=== PATIENT | female | born 1960 | race Hispanic/Latino ===

== ENCOUNTER 2017-10-29 12:19 | Emergency (ER) | payer SELFPAY ==
[2017-10-29] MEDS ORDERED: IBUPROFEN 600 MG TABLET ONE (12:51)
== END 2017-10-29 14:24 | disposition home or self-care (01) ==
LOC: EDH 12:19
DX: S83.8X1A Sprain of other specified parts of right knee, initial encounter (principal); E11.9 Type 2 diabetes mellitus without complications; I10 Essential (primary) hypertension; E78.5 Hyperlipidemia, unspecified; Z79.4 Long term (current) use of insulin; X50.1XXA Overexertion from prolonged static or awkward postures, initial encounter; Y93.01 Activity, walking, marching and hiking; Y92.89 Other specified places as the place of occurrence of the external cause; Y99.8 Other external cause status
CPT/HCPCS: 73562

== ENCOUNTER 2018-07-23 17:21 | Inpatient (IN) | payer OTHER ==
[2018-07-23] VITALS (10 sets, daily range): BP systolic 93–115; BP diastolic 54–84
[2018-07-23] MEDS ORDERED: ASPIRIN 81MG TAB.CHEW ONE (17:42)
[2018-07-23] MEDS ORDERED: HEPARIN SODIUM 5000UNIT/ML 1ML VIAL ONE (17:43)
[2018-07-23 17:53] LABS: BASOPHILS % (AUTO) 0.6 % (0.0-5.0); EOSINOPHILS % (AUTO) 0.4 % (0.0-8.0); HEMATOCRIT 40.9 % (36-48); LYMPHOCYTES % (AUTO) 11.2 % (21.0-51.0); MEAN CORPUSCULAR HEMOGLOBIN 30.8 pg (27.0-33.0); MEAN CORPUSCULAR HGB CONC 33.6 g/dL (32.0-36.0); MEAN CORPUSCULAR VOLUME 91.4 fL (79-99); MONOCYTES % (AUTO) 5.1 % (3.0-13.0); NEUTROPHILS % (AUTO) 82.7 % (40.0-77.0); PLATELET COUNT (AUTO) 226 K/uL (130-400); RED BLOOD CELL COUNT(AUTO) 4.48 MIL/uL (4.00-5.50); RED CELL DISTRIBUTION WIDTH 13.4 % (11.0-15.5); WHITE BLOOD COUNT (AUTO) 15.8 K/uL (4.8-10.8)
[2018-07-23 18:04] LABS: CREATININE 1.5 mg/dL (0.5-1.5); POTASSIUM 4.3 mmol/L (3.5-5.1)
[2018-07-23] MEDS ORDERED: ATROPINE SULFATE 0.1 MG/ML 10 ML SYG IVP ONE (18:06)
[2018-07-23] MEDS ORDERED: BIVALIRUDIN 250 MG/VIAL IV ONE (18:06)
[2018-07-23] MEDS ORDERED: NITROGLYCERIN 5 MG/ML 10 ML VIAL IV ONE (18:07)
[2018-07-23] MEDS ORDERED: DOPAMINE HCL 400 MG/D5%-WATER 250 ML IV ONE (18:07)
[2018-07-23] MEDS ORDERED: IOHEXOL 350 MG/ML 100ML INFUS..BTL IV ONE (18:07)
[2018-07-23] MEDS ORDERED: IOHEXOL-350 50ML VIAL IV ONE (18:07)
[2018-07-23] MEDS ORDERED: LIDOCAINE HCL 2% 20ML ONE (18:07)
[2018-07-23 18:11] LABS: BILIRUBIN,TOTAL 0.4 mg/dL (0.2-1.0); TOTAL PROTEIN, SERUM 7.8 g/dL (6.0-8.3)
[2018-07-23 18:26] LABS: B-TYPE NATRIURETIC PEPTIDE 27 pg/mL (0-100)
[2018-07-23] MEDS ORDERED: AMIODARONE HCL 50 MG/ML 3 ML VIAL ONE ×2 (18:26→18:27)
[2018-07-23] MEDS ORDERED: PRASUGREL HCL 10 MG TABLET ONE (19:11)
[2018-07-23] MEDS ORDERED: DOPAMINE HCL 400 MG in SODIUM CHLORIDE 0.9% 240 ML IV SCH (19:30)
[2018-07-23] MEDS ORDERED: TEMAZEPAM 30 MG CAP PO PRN (19:30)
[2018-07-23] MEDS ORDERED: ACETAMINOPHEN-CODEINE 300/30MG TAB PO PRN ×2 (19:30)
[2018-07-23] MEDS ORDERED: ONDANSETRON HCL 4 MG/2 ML VIAL IVP SCH (19:30)
[2018-07-23] MEDS ORDERED: ONDANSETRON HCL 4 MG/2 ML VIAL IVP PRN (19:30)
[2018-07-23] MEDS ORDERED: MORPHINE SULFATE 5 MG/ML VIAL IVP SCH ×2 (19:30)
[2018-07-23] MEDS: INSULIN HUMULIN R 100 UNIT/ML 3ML SQ SCH (21:00)
[2018-07-23 22:28] LABS: INR 1.15 (0.85-1.15); PARTIAL THROMBOPLASTIN TIME 50.4 SEC (26.3-35.5)
[2018-07-23] MEDS ORDERED: MORPHINE SULFATE 2 MG/ML 1ML SYG IVP PRN (22:30)
[2018-07-23] MEDS ORDERED: DOPAMINE HCL 400 MG/D5%-WATER 250 ML IV PRN (23:45)
[2018-07-24] VITALS (20 sets, daily range): BP systolic 111–161; BP diastolic 58–99
[2018-07-24] MEDS: ATORVASTATIN CALCIUM 20 MG TABLET PO SCH ×2 (01:19→21:56)
[2018-07-24 02:52] LABS: MEAN CORPUSCULAR HEMOGLOBIN 31.1 pg (27.0-33.0); MEAN CORPUSCULAR HGB CONC 33.9 g/dL (32.0-36.0); MEAN CORPUSCULAR VOLUME 91.7 fL (79-99); PLATELET COUNT (AUTO) 195 K/uL (130-400); RED BLOOD CELL COUNT(AUTO) 4.15 MIL/uL (4.00-5.50); RED CELL DISTRIBUTION WIDTH 13.4 % (11.0-15.5); WHITE BLOOD COUNT (AUTO) 15.1 K/uL (4.8-10.8)
[2018-07-24 03:18] LABS: CREATININE 1.2 mg/dL (0.5-1.5); POTASSIUM 4.1 mmol/L (3.5-5.1)
[2018-07-24] MEDS: INSULIN HUMULIN R 100 UNIT/ML 3ML SQ SCH ×4 (07:30→21:00)
[2018-07-24] MEDS: ASPIRIN 81MG TAB.CHEW PO SCH (08:24)
[2018-07-24] MEDS: PANTOPRAZOLE SODIUM 40 MG TABLET.DR PO SCH (08:24)
[2018-07-24] MEDS ORDERED: OMEG-148 PO (09:26)
[2018-07-24] MEDS ORDERED: IBUP-2353 PO (09:26)
[2018-07-24] MEDS ORDERED: LISI40TA4 PO (09:26)
[2018-07-24] MEDS ORDERED: METF-445 PO (09:26)
[2018-07-24] MEDS ORDERED: ERGO500014 PO (09:26)
[2018-07-24] MEDS ORDERED: AEC81 PO (09:26)
[2018-07-24] MEDS: PRASUGREL HCL 10 MG TABLET PO SCH (10:56)
--- NOTE | 2018-07-24 12:55 | NUR ---
DC Plan Discussed dcp w/ patient. Lives w/ room mate. Roommate and dtr to assist on dc. Independently performs ADLs. Works as a provider. Denies any HH or provider services. Established with the [facility]. States feel safe returning home once stable. DCP to home. Patient denied any needs. CD Addendum: 07/24/18 at 1259 by MATHEUS JOHNS CM Amended: Links added.
[2018-07-24] MEDS: METOPROLOL TARTRATE 25 MG TAB PO SCH (21:56)
[2018-07-25 03:54] LABS: BASOPHILS % (AUTO) 0.5 % (0.0-5.0); EOSINOPHILS % (AUTO) 0.8 % (0.0-8.0); HEMATOCRIT 36.9 % (36-48); LYMPHOCYTES % (AUTO) 28.7 % (21.0-51.0); MEAN CORPUSCULAR HEMOGLOBIN 31.6 pg (27.0-33.0); MEAN CORPUSCULAR HGB CONC 34.1 g/dL (32.0-36.0); MEAN CORPUSCULAR VOLUME 92.6 fL (79-99); MONOCYTES % (AUTO) 6.9 % (3.0-13.0); NEUTROPHILS % (AUTO) 63.1 % (40.0-77.0); PLATELET COUNT (AUTO) 174 K/uL (130-400); RED BLOOD CELL COUNT(AUTO) 3.98 MIL/uL (4.00-5.50); RED CELL DISTRIBUTION WIDTH 13.5 % (11.0-15.5); WHITE BLOOD COUNT (AUTO) 10.1 K/uL (4.8-10.8)
[2018-07-25 04:00] VITALS: BP 137/103
[2018-07-25 04:11] LABS: CREATININE 0.9 mg/dL (0.5-1.5); POTASSIUM 3.8 mmol/L (3.5-5.1)
[2018-07-25] MEDS: INSULIN HUMULIN R 100 UNIT/ML 3ML SQ SCH ×4 (06:56→21:00)
[2018-07-25 07:11] VITALS: BP 148/95
--- NOTE | 2018-07-25 08:00 | NUR ---
PT RECEIVED IN BED, AAOX4, NO ACUTE DISTRESS NOTED. POST HEART CATH DAY #2. TELE WITH SR 80s. NO C/O CHEST PAIN VOICED. RIGHT GROIN WITH D-STAT NOTED, NO HEMATOMA, NO BLEEDING TO SITE. PULSES STRONG DISTALLY. POC DISCUSSED WITH PATIENT. PENDING 2D ECHO FOR FURTHER PLANNING. INSTRUCTED TO CALL FOR ASSISTANCE IF NEEDED, VOICED UNDERSTANDING. CALL DUMONT IS WITHIN REACH, WILL CONT OT MONITOR. Addendum: 07/25/18 at 1043 by ROSA MARIA SCHMITT RN RN Amended: Links added.
[2018-07-25] MEDS: PANTOPRAZOLE SODIUM 40 MG TABLET.DR PO SCH (08:25)
[2018-07-25] MEDS: METOPROLOL TARTRATE 25 MG TAB PO SCH ×2 (08:26→20:19)
[2018-07-25] MEDS: ASPIRIN 81MG TAB.CHEW PO SCH (08:26)
[2018-07-25] MEDS: LISINOPRIL 40 MG TABLET PO SCH (08:26)
[2018-07-25] MEDS: PRASUGREL HCL 10 MG TABLET PO SCH (08:26)
--- NOTE | 2018-07-25 10:44 | NUR ---
2D ECHO COMPLETE. MD ROUNDS DR. ARANGO IN TO SEE PATIENT. NO NEW ORDERS RECEIVED.
[2018-07-25 11:00] VITALS: BP 157/90
--- NOTE | 2018-07-25 14:30 | NUR ---
MD ROUNDS DR. SCTOT IN TO SEE PATIENT. MD UPDATED ON POC, PENDING 2-D ECHO TO BE READ.
[2018-07-25 16:00] VITALS: BP 154/93
[2018-07-25 19:00] VITALS: BP 167/102
[2018-07-25] MEDS ORDERED: HYDRALAZINE HCL 20 MG/ML VIAL IV PRN (20:15)
[2018-07-25] MEDS: ATORVASTATIN CALCIUM 20 MG TABLET PO SCH (20:19)
[2018-07-25 23:00] VITALS: BP 158/99
[2018-07-26 03:00] VITALS: BP 165/102
[2018-07-26 03:41] LABS: HEMATOCRIT 38.6 % (36-48); MEAN CORPUSCULAR HGB CONC 33.9 g/dL (32.0-36.0); MEAN CORPUSCULAR VOLUME 91.3 fL (79-99); NUCLEATED RED BLOOD CELLS 0.1 % (0.0-0.19); PLATELET COUNT (AUTO) 162 K/uL (130-400); RED BLOOD CELL COUNT(AUTO) 4.22 MIL/uL (4.00-5.50); RED CELL DISTRIBUTION WIDTH 13.4 % (11.0-15.5); WHITE BLOOD COUNT (AUTO) 10.6 K/uL (4.8-10.8)
--- NOTE | 2018-07-26 03:47 | NUR ---
BP PRN HYDRALAZINE GIVEN AT THIS TIME BP 165/102 SEE JUL. WILL CONTINUE TO MONITOR.
[2018-07-26 04:00] LABS: PHOSPHORUS 3.3 mg/dL (2.5-4.9); POTASSIUM 3.8 mmol/L (3.5-5.1)
[2018-07-26 04:09] LABS: HEMOGLOBIN A1C 5.7 % (4.0-6.0)
[2018-07-26 04:54] VITALS: BP 150/77
[2018-07-26] MEDS: INSULIN HUMULIN R 100 UNIT/ML 3ML SQ SCH ×2 (06:09→11:30)
[2018-07-26 07:30] VITALS: BP 141/92
--- NOTE | 2018-07-26 07:45 | NUR ---
PT RECEIVED IN BED, AAOX4, NO ACUTE DISTRESS NOTED. TELE WITH SR 68, NO CHEST PAIN OR SOB VOICED. DR. ARANGO IN TO SEE PATIENT. DISCUSSED FINDINGS OF HEART CATH WITH HER AND HER SISTERS RESENT. PLAN FOR DISCHARGE THIS EVENING, PENDING EVALUATION OF BLOOD PRESSURE WITH NEW MEDICATIONS TO BE ADDED THIS AM. MD INSTRUCTED PT TO BE OUT OF BED, AMBULATE AND REPORT ANY SOB OR CHEST PAIN TO NURSE. PATIENT VOICED UNDERSTANDING. WILL CONT TO MONITOR.
[2018-07-26] MEDS: PANTOPRAZOLE SODIUM 40 MG TABLET.DR PO SCH (08:56)
[2018-07-26] MEDS: METOPROLOL TARTRATE 25 MG TAB PO SCH (08:56)
[2018-07-26] MEDS: ASPIRIN 81MG TAB.CHEW PO SCH (08:56)
[2018-07-26] MEDS: LISINOPRIL 40 MG TABLET PO SCH (08:56)
[2018-07-26] MEDS: PRASUGREL HCL 10 MG TABLET PO SCH (08:56)
[2018-07-26] MEDS ORDERED: AMLODIPINE BESYLATE 5 MG TAB PO SCH (09:00)
[2018-07-26] MEDS ORDERED: HYDROCHLOROTHIAZIDE 25 MG TABLET PO SCH (09:00)
--- NOTE | 2018-07-26 10:57 | NUR ---
PT WITH C/O HEADACHE. BP 136/[address] SCOTT NEED ORDER FOR PRN PAIN MED.
[2018-07-26] MEDS ORDERED: ACETAMINOPHEN 325 MG TAB ONE (11:11)
[2018-07-26] MEDS ORDERED: ACETAMINOPHEN 325 MG TAB PO PRN (11:15)
[2018-07-26 11:21] VITALS: BP 145/76
--- NOTE | 2018-07-26 14:20 | NUR ---
MD ROUNDS DR. SCOTT IN TO SEE PATIENT. MD UPDATED ON STATUS AND NEW ORDERS FROM DR. ARANGO. PT CLEARED FOR DISCHARGE PER CARDIOLOGY. DR. SCOTT REVIEWED MEDICATIONS AND ADJUSTED ACCORDINGLY.
[2018-07-26 15:40] VITALS: BP 141/91
--- NOTE | 2018-07-26 16:54 | NUR ---
PATIENT HAS BEEN DISCHARGED HOME, ALL INSTRUCTIONS GIVEN UTILIZING TEACH BACK. INSTRUCTIONS FOLLOWS: FOLLOW UP WITH DR. ARANGO 08/18/2018 @ 3:30 PM FOLLOW UP WITH PRIMARY CARE PROVIDER, CALL MD OFFICE AND SCHEDULE AN APPOINTMENT FOR 1 WEEK, POST HOSPITALIZATION. NEW MEDICATIONS: LISINOPRIL 10 MG BY MOUTH DAILY, METOPROLOL TARTRATE 25 MG BY MOUTH TWICE A DAY PLAVIX 75MG BY MOUTH DAILY AMLODIPINE 5 MG BY MOUTH DAILY ASA 81 MG BY MOUTH DAILY ATORVASTATIN 40 MG BY MOUTH AT NIGHT. DISCUSSED WITH PATIENT S/S TO REPORT TO MD AND WHEN TO SEEK IMMEDIATE MEDICAL HELP. INSTRUCTED TO MONITOR RIGHT GROIN GROIN FOR S/S OF HEMATOMA, BLEEDING OR INFECTION. PIV TO LEFT AC REMOVED WITH CATHETER INTACT. PIV TO RIGHT AC REMOVED WITH CATHETER INTACT.
== END 2018-07-26 16:47 | disposition home or self-care (01) | DRG 246 ==
LOC: EDH 17:21 → EDHIP 17:22 → OBSVTOIN 17:22 → 2CV 19:05 → 2BH 07-24 00:43
PROVIDERS: ADMIT Hospitalist; ATTEND Hospitalist
PROC: 027034Z Dilation of Coronary Artery, One Artery with Drug-eluting Intraluminal Device, Percutaneous Approach (ICD-10-PCS; principal; 2018-07-23)
PROC: 4A023N7 Measurement of Cardiac Sampling and Pressure, Left Heart, Percutaneous Approach (ICD-10-PCS; 2018-07-23)
PROC: B2111ZZ Fluoroscopy of Multiple Coronary Arteries using Low Osmolar Contrast (ICD-10-PCS; 2018-07-23)
PROC: 02C03ZZ Extirpation of Matter from Coronary Artery, One Artery, Percutaneous Approach (ICD-10-PCS; 2018-07-23)
PROC: 3E07317 Introduction of Other Thrombolytic into Coronary Artery, Percutaneous Approach (ICD-10-PCS; 2018-07-23)
DX: I21.19 ST elevation (STEMI) myocardial infarction involving other coronary artery of inferior wall (principal); R57.0 Cardiogenic shock; E11.9 Type 2 diabetes mellitus without complications; E66.9 Obesity, unspecified; E78.5 Hyperlipidemia, unspecified; I11.9 Hypertensive heart disease without heart failure; I25.119 Atherosclerotic heart disease of native coronary artery with unspecified angina pectoris; I25.2 Old myocardial infarction; Z79.02 Long term (current) use of antithrombotics/antiplatelets; Z79.82 Long term (current) use of aspirin; Z79.899 Other long term (current) drug therapy
CPT/HCPCS: 36415; 71045; 80048; 80053; 80061; 82948; 83036; 83605; 83690; 83735; 83880; 84100; 84484; 85025; 85027; 85610; 85730; 92941; 92975; 93005; 93306; 93458; C1725; C1769; C1874; C1887; C1894; G0378; J0282; J0360; J0461; J0583; J1265; J1644; J2270; J3490; Q9967

== ENCOUNTER → 2018-11-14 | Outpatient (CLI) | payer OTHER ==
[~2018-11-14] MED LIST: AEC81 PO; ERGO500014 PO; IBUP-2353 PO; METF-445 PO; OMEG-148 PO
== END | disposition home or self-care (01) ==
LOC: OIH 15:09
PROVIDERS: ATTEND Internal Medicine
DX: I10 Essential (primary) hypertension (principal)
CPT/HCPCS: 71046

== ENCOUNTER 2019-01-25 06:40 | Day surgery (SDC) | payer MEDICAID, MEDICARE ==
[2019-01-20 09:30] VITALS: BP 124/72
[2019-01-20 09:44] LABS: BASOPHILS % (AUTO) 0.7 % (0.0-5.0); EOSINOPHILS % (AUTO) 2.6 % (0.0-8.0); HEMATOCRIT 42.7 % (36-48); MEAN CORPUSCULAR HEMOGLOBIN 30.9 pg (27.0-33.0); MEAN CORPUSCULAR HGB CONC 34.1 g/dL (32.0-36.0); MEAN CORPUSCULAR VOLUME 90.6 fL (79-99); MONOCYTES % (AUTO) 6.6 % (3.0-13.0); NEUTROPHILS % (AUTO) 68.1 % (40.0-77.0); PLATELET COUNT (AUTO) 181 K/uL (130-400); RED BLOOD CELL COUNT(AUTO) 4.71 MIL/uL (4.00-5.50); RED CELL DISTRIBUTION WIDTH 13.9 % (11.0-15.5); WHITE BLOOD COUNT (AUTO) 7.8 K/uL (4.8-10.8)
[2019-01-20 10:04] LABS: APPEARANCE,URINE Clear (CLEAR); BILIRUBIN,URINE Negative (NEGATIVE); COLOR,URINE Yellow (YELLOW); GLUCOSE, URINE (UA) 250 mg/dL (NEGATIVE); KETONES,URINE Negative (NEGATIVE); LEUKOCYTE ESTERASE ,URINE Small (NEGATIVE); NITRATE,URINE Negative (NEGATIVE); OCCULT BLOOD,URINE Negative (NEGATIVE); PROTEIN,URINE Negative (NEGATIVE)
[2019-01-20 10:09] LABS: CREATININE 1.1 mg/dL (0.5-1.5); POTASSIUM 3.8 mmol/L (3.5-5.1)
[2019-01-20 10:11] LABS: BACTERIA,URINE Rare /HPF (None Seen); RBC,URINE 0-1 /HPF (0-1); SQUAMOUS EPITHELIAL CELL,UR Rare /HPF (0-2)
[2019-01-20 10:12] LABS: INR 0.93 (0.85-1.15); PARTIAL THROMBOPLASTIN TIME 27.3 SEC (26.3-35.5); PROTHROMBIN TIME 9.8 SEC (9.6-11.6)
--- NOTE | 2019-01-24 10:13 | NUR ---
UA INFORMED JEANA TEJEDA OF ABNORMAL UA. NO ORDERS RECEIVED. PROCEED WITH PLANNED PROCEDURE.
[~2019-01-25] VITALS: Ht 160 cm; Wt 81.6 kg
[2019-01-25] VITALS (12 sets, daily range): BP systolic 122–144; BP diastolic 54–79
[~2019-01-25 06:40] MED LIST changes: +AMLO5TAB9 PO; +ATOR40TA71 PO; +CLOP75TA32 PO; +IBUP-2076 PO; -IBUP-2353 PO; +LISI10TA7 PO; +METO25TA6 PO; +NITR0.4T50 SL; -OMEG-148 PO
[2019-01-25] MEDS ORDERED: SODIUM CHLORIDE 0.9% 1000ML 1,000 ML IV ONE (07:02)
[2019-01-25] MEDS ORDERED: IOHEXOL 350 MG/ML 100ML INFUS..BTL IV ONE (10:12)
[2019-01-25] MEDS ORDERED: IOHEXOL-350 50ML VIAL IV ONE (10:12)
[2019-01-25] MEDS ORDERED: BIVALIRUDIN 250 MG/VIAL IV ONE (10:12)
[2019-01-25] MEDS ORDERED: LIDOCAINE HCL 2% 20ML ONE (10:12)
[2019-01-25] MEDS ORDERED: HEPARIN SODIUM 1000UNIT/ML 10ML VIAL ONE (10:12)
[2019-01-25] MEDS ORDERED: NITROGLYCERIN 5 MG/ML 10 ML VIAL IV ONE (10:12)
[2019-01-25] MEDS ORDERED: VERAPAMIL HCL 2.5 MG/ML VIAL ONE (10:13)
[2019-01-25] MEDS ORDERED: FENTANYL CITRATE PF 50 MCG/1 ML 2ML VIAL ONE (10:39)
[2019-01-25] MEDS ORDERED: MIDAZOLAM HCL 1 MG/ML 2ML VIAL ONE (10:39)
[2019-01-25] MEDS ORDERED: ATROPINE SULFATE 0.1 MG/ML 10 ML SYG IVP ONE (11:42)
[2019-01-25] MEDS ORDERED: CLOPIDOGREL BISULFATE 300 MG TAB ONE (12:09)
[2019-01-25] MEDS ORDERED: SODIUM CHLORIDE 0.9% 1000ML 1,000 ML IV SCH (12:16)
[2019-01-25] MEDS ORDERED: HYDRALAZINE HCL 20 MG/ML VIAL IV PRN (12:30)
[2019-01-25] MEDS ORDERED: GLUCAGON 1MG KIT 1 MG ML IM PRN (12:30)
[2019-01-25] MEDS ORDERED: NITROGLYCERIN 0.4 MG SL TAB SL PRN (12:30)
[2019-01-25] MEDS ORDERED: DEXTROSE 50%-WATER 50 ML DISP.SYRIN IV PRN (12:30)
[2019-01-25] MEDS ORDERED: METOPROLOL TARTRATE 1 MG/ML 5ML VIAL IV PRN (12:30)
--- NOTE | 2019-01-25 12:45 | NUR ---
PT. CAME VIA BED FROM [employer] OPERATOR V/S STABLE, PERCLOSE TO THE RT. GROIN 2 HR BEDREST DRESSING DRY AND INTACT. NO PAIN, NO HEMATOMA, NO BLEEDING.
--- NOTE | 2019-01-25 13:00 | NUR ---
PT. CONTINUE BE WITHOUT COMPLICATION, NO BLEEDING NO HEMATOMA, NO PAIN. WILL CONTINUE TO MONITOR PT.
--- NOTE | 2019-01-25 13:15 | NUR ---
PT. V/S STABLE, ATE, LUNCH DRESSING DRY AND INTACT. WILL CONTINUE TO MONITOR PT.
--- NOTE | 2019-01-25 13:40 | NUR ---
PT. HAD A SMALL HEMATOMA TO THE RT. GROIN SIZE OF A LEMON. HELD PRESSURE FOR 20 MIN,SITE IS SOFT, NO BLEEDING FROM SITE. DR. ARANGO MADE AWARE, PER DR. ARANGO ADD 2 MORE HOURS OF BEDREST. PT BEDREST UP AT 1600. PT D/C TIME IS 1800.
--- NOTE | 2019-01-25 14:00 | NUR ---
GLORIA URIAS LVN CAME TO LOOK AT SITE TO THE RT. GROIN STATED IT LOOKS GOOD AND SOFT.
--- NOTE | 2019-01-25 14:15 | NUR ---
PT. RESTING COMFORTABLY DRESSING DRY AND INTACT NO, BLEEDING NO HEMATOMA. WILL CONTINUE TO MONITOR PATIENT.
--- NOTE | 2019-01-25 14:30 | NUR ---
PT . V/S STABLE SITE IS SOFT, NO HEMATOMA AND NO BLEEDING. WILL CONTINUE TO MONITOR
--- NOTE | 2019-01-25 14:50 | NUR ---
RESUMED CARE RESUMED CARE OF PATIENT FROM Dean PIERSON RN.
--- NOTE | 2019-01-25 15:07 | NUR ---
MD DR. Lizbeth ARANGO IN TO EVALUATE RIGHT GROIN AREA. NO FURTHER ORDERS GIVEN
[2019-01-25] MEDS ORDERED: INSULIN HUMULIN R 100 UNIT/ML 3ML SQ SCH (16:30)
--- NOTE | 2019-01-25 18:00 | NUR ---
dc dc instructions given to patient daughter, instructed to continue home meds except ibuprofen, right groin site with no bleeding or hematoma, dressing dry and intact, piv removed
--- NOTE | 2019-01-25 18:40 | NUR ---
dc pt dc home via wc,no distress noted, denied any pain or discomforts. accompanied by daughter,
[2019-01-26] MEDS ORDERED: CLOPIDOGREL BISULFATE 75 MG TAB PO SCH (09:00)
== END 2019-01-25 18:40 | disposition home or self-care (01) ==
LOC: DAH 06:40
PROVIDERS: ATTEND Internal Medicine Cardiovascular Disease
DX: I25.118 Atherosclerotic heart disease of native coronary artery with other forms of angina pectoris (principal); E11.9 Type 2 diabetes mellitus without complications; I10 Essential (primary) hypertension; E78.5 Hyperlipidemia, unspecified; Z82.49 Family history of ischemic heart disease and other diseases of the circulatory system; I25.2 Old myocardial infarction; Z79.84 Long term (current) use of oral hypoglycemic drugs
CPT/HCPCS: 36415; 71045; 80048; 81001; 82948 ×2; 85025; 85610; 85730; 92921; 93005; 93454; A4215; A4216; A4221; A4222; A4223 ×3; A4606; C1725 ×2; C1760; C1769 ×2; C1874 ×2; C1887 ×2; C1894 ×3; C9600 ×2; J0583; J1644; J2250; J3010; J3490 ×2; J7030; Q9965 ×2; Q9967; 99156; 99157; J0461

== ENCOUNTER 2023-09-19 02:53 | Emergency (ER) | payer MEDICAID ==
[~2023-09-19] VITALS: Ht 157.5 cm; Wt 80.7 kg
[~2023-09-19 02:53] MED LIST changes: +AMLO-257 PO; -AMLO5TAB9 PO; -IBUP-2076 PO; +LISI10TA24 PO; -LISI10TA7 PO
[2023-09-19 03:03] VITALS: BP 141/72; PULSE 66; RESP 16; O2SAT 97
[2023-09-19 03:22] LABS: BASOPHILS # (AUTO) 0.06 K/uL (0.00-0.20); BASOPHILS % (AUTO) 0.6 % (0.0-5.0); EOSINOPHILS # (AUTO) 0.26 K/uL (0.00-0.70); EOSINOPHILS % (AUTO) 2.4 % (0.0-8.0); HEMATOCRIT 41.5 % (36-48); IMMATURE GRANULOCYTE ABSOLUTE 0.05 K/uL (0-1); LYMPHOCYTES # (AUTO) 2.6 K/uL (1.0-4.8); LYMPHOCYTES % (AUTO) 23.9 % (21.0-51.0); MEAN CORPUSCULAR HEMOGLOBIN 29.5 pg (27.0-33.0); MEAN CORPUSCULAR VOLUME 86.8 fL (79-99); MONOCYTES # (AUTO) 0.8 K/uL (0.1-1.0); MONOCYTES % (AUTO) 7.7 % (3.0-13.0); NEUTROPHILS # (AUTO) 7.1 K/uL (1.8-7.7); NEUTROPHILS % (AUTO) 64.9 % (40.0-77.0); PLATELET COUNT (AUTO) 262 K/uL (130-400); RED BLOOD CELL COUNT(AUTO) 4.78 MIL/uL (4.00-5.50); RED CELL DISTRIBUTION WIDTH 14.6 % (11.0-15.5); WHITE BLOOD COUNT (AUTO) 10.9 K/uL (4.8-10.8)
[2023-09-19 03:28] LABS: POTASSIUM 3.5 mmol/L (3.5-5.1)
== END 2023-09-19 04:10 | disposition home or self-care (01) ==
LOC: EDH 02:53
DX: N93.9 Abnormal uterine and vaginal bleeding, unspecified (principal); E11.9 Type 2 diabetes mellitus without complications; I10 Essential (primary) hypertension; Z79.82 Long term (current) use of aspirin; Z79.84 Long term (current) use of oral hypoglycemic drugs; Z95.5 Presence of coronary angioplasty implant and graft
CPT/HCPCS: 36415; 76856; 80048; 85025

== ENCOUNTER → 2024-08-29 | Outpatient (CLI) | payer MEDICAID ==
--- NOTE | 2024-08-29 11:18 | HMCSR ---
APPROVED REPORT Laterality: Bilateral Indications r09.89 Doppler Spectral Velocity Analysis PSV / EDVPSV / EDV ECA (R) 72 / cm/sECA (L) 68 / cm/s dICA (R) 83 / 37 cm/sdICA (L) 52 / 24 cm/s Jennifer (R) 59 / 25 cm/smICA (L) 56 / 21 cm/s pICA (R) 49 / 21 cm/spICA (L) 41 / 20 cm/s dCCA (R) 61 / 17 cm/sdCCA (L) 58 / 19 cm/s mCCA (R) 81 / 16 cm/smCCA (L) 75 / 20 cm/s pCCA (R) 86 / 16 cm/spCCA (L) 58 / 13 cm/s Vert (R) 30 / cm/sVert (L) 35 / cm/s Subl. (R) 122 / cm/sSubl. (L) 118 / cm/s ICA/CCA 0.97ICA/CCA 0.75 Technologist Impression Minimal plaque noted in the bilateral carotids, without hemodynamic significance. Bilateral vertebral arteries appear antegrade. Conclusion Minimal plaque noted in the bilateral carotids, without hemodynamic significance. Bilateral vertebral arteries appear antegrade. Conclusion Minimal plaque noted in the bilateral carotids, without hemodynamic significance. Bilateral vertebral arteries appear antegrade.
--- NOTE | 2024-08-29 11:18 | HMCSR ---
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 (R) 66.0cm/sec, Biphasic, Prof Fem Art. (L) 65.3cm/sec, Biphasic, Fem Art Prox. (R) 118.1cm/sec, Biphasic, Fem Art Prox. (L) 127.2cm/sec, Biphasic, Fem Art Mid. (R) 68.5cm/sec, Biphasic, Fem Art Mid. (L) 79.1cm/sec, Biphasic, Fem Art Dist (R) 71.8cm/sec, Biphasic, Fem Art Dist. (L) 47.1cm/sec, Biphasic, Pop Art(AK) (R) 69.3cm/sec, Biphasic, Pop Art (AK) (L) 53.8cm/sec, Biphasic, Pop Art (Fossa)(R) 57.1cm/sec, Biphasic, Pop Art (Fossa) (L) 56.6cm/sec, Biphasic, Pop Art(BK) (R) 52.2cm/sec, Biphasic, Pop Art (BK) (L) 58.9cm/sec, Biphasic, WEIGHTS AND MEASURES INSPECTOR Prox. (R) 66.1cm/sec, Biphasic, WEIGHTS AND MEASURES INSPECTOR Prox. (L) 71.0cm/sec, Biphasic, WEIGHTS AND MEASURES INSPECTOR Mid. (R) 75.9cm/sec, Biphasic, WEIGHTS AND MEASURES INSPECTOR Mid. (L) 75.0cm/sec, Biphasic, WEIGHTS AND MEASURES INSPECTOR Dist. (R) 62.8cm/sec, Biphasic, WEIGHTS AND MEASURES INSPECTOR Dist. (L) 48.2cm/sec, Biphasic, Per Art Prox. (R) 33.0cm/sec, Biphasic, Per Art Prox. (L) 48.9cm/sec, Biphasic, Per Art Mid. (R) 37.0cm/sec, Biphasic, Per Art Mid. (L) 50.6cm/sec, Biphasic, Per Art Dist. (R) 38.1cm/sec, Biphasic, Per Art Dist. (L) 57.1cm/sec, Biphasic, ISABELLA Prox. (R) 82.2cm/sec, Biphasic, ISABELLA Prox. (L) 85.7cm/sec, Biphasic, ISABELLA Mid. (R) 82.2cm/sec, Biphasic ISABELLA Mid. (L) 57.9cm/sec, Biphasic, ISABELLA Dist. (R) 82.2cm/sec, Biphasic, ISABELLA Dist. (L) 83.4cm/sec, Biphasic, Technologist Impression No evidence of significant arterial insufficiency of bilateral lower extremities. Multiphasic waveforms in the bilateral lower extremities. Conclusion No evidence of significant arterial insufficiency of bilateral lower extremities. Conclusion No evidence of significant arterial insufficiency of bilateral lower extremities.
--- NOTE | 2024-08-29 14:29 | HMCSR ---
APPROVED REPORT EXAM: Two-dimensional and M-mode echocardiogram with Doppler and color Doppler. 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 Abnormal ECG 2D Dimensions RVDd3.9 cmLVEF(%)63.3 (>50%)LVED Vol(simp.)109.0 mL IVSd1.2 (0.7-1.1cm)FS(%)34 %LVES Vol(simp.)54.0 mL LVDd4.6 (3.8-5.6cm)Ao Root(2D)3.5 (2.0-3.7cm)LVEF(%, simp.)51 % PWd1.2 (0.7-1.1cm)LVOT diam1.9 (1.8-2.4cm)LA ESV INDEX (BP)43.83 mL/m2 LVDs3.0 (2.5-4.0cm)IVC diam1.6 cm Aortic Valve AoV Vmax1.7 m/Nicho Peak GR11.8 mmHgLVOT Vmax1.0 m/s AoV VTI0.4 mAo Mean GR6.2 mmHgLVOT VTI0.24 m LAZARUS (VMAX)1.7 cm2Al P1/6H3344 msAVA (VTI) 1.7 cm2 Mitral Valve MV E Vmax73.8 cm/sDECEL Bdnr761 ms MV A Vmax88.3 cm/sP 1/2 T76 ms E/A ratio0.8MVA (PHT)2.9 cm2 TDI E/E' Wauuxr08.5E/E' Mfneamq21.6 Pulmonary Valve PV Vmax0.7 m/sPV VTI0.21 mPV Mean GR1 mmHg PV Peak GR2.1 mmHgPI End Unique. Ron 0.9 cm/s Tricuspid Valve TR Vmax2.2 m/sRAP (EST) 3 urWnQTZM09.0 mmHg TR Peak GR19.0 mmHg Left Ventricle Left ventricular cavity size is normal. There is normal LV segmental wall motion. There is mild kristina ntric left ventricular hypertrophy. LVEF is 50-55%. Grade 2 diastolic dysfunction. Right Ventricle The right ventricle is normal size. The right ventricular systolic function is normal. Atria The left atrium is moderately dilated. Possible PFO is noted. Clinical correlation recommended The ri ght atrium is mildly dilated. Aortic Valve Aortic valve is trileaflet. Aortic valve leaflets are sclerotic. Mild aortic regurgitation. AV Dimens ionless Index is 0.60 Calculated aortic valve area is 1.7 cm2 with maximum pressure gradient of 11.8 mmHg and mean pressure gradient of 6.2 mmHg. Mitral Valve The mitral valve is mildly thickened. Mitral regurgitation is trace. There is no mitral valve stenosi s. Tricuspid Valve The tricuspid valve leaflets appear normal. There is trace tricuspid regurgitation. Pulmonic Valve The pulmonic valve leaflets are thin and pliable; valve motion is normal. There is trace pulmonic britton vular regurgitation. Great Vessels The aortic root is normal in size. The IVC is normal in size and collapses >50% with inspiration. Pericardium No pericardial effusion. Conclusion LVEF is 50-55%. Grade 2 diastolic dysfunction. Mild aortic regurgitation. The aortic root is normal in size. No pericardial effusion.
== END | disposition home or self-care (01) ==
LOC: SHCH 09:18
PROVIDERS: ATTEND Internal Medicine Cardiovascular Disease
DX: I08.0 Rheumatic disorders of both mitral and aortic valves (principal); I65.23 Occlusion and stenosis of bilateral carotid arteries; I25.10 Atherosclerotic heart disease of native coronary artery without angina pectoris; R94.31 Abnormal electrocardiogram [ECG] [EKG]; I73.9 Peripheral vascular disease, unspecified; R09.89 Other specified symptoms and signs involving the circulatory and respiratory systems
CPT/HCPCS: 93306; 93880; 93925

== ENCOUNTER → 2024-09-01 | Outpatient (CLI) | payer MEDICARE, MEDICAID ==
[2024-09-01] MEDS: REGADENOSON 0.4 MG/5 ML PF SYG IVP ONE (14:03)
== END | disposition home or self-care (01) ==
LOC: SHCH 07:43
PROVIDERS: ATTEND Internal Medicine Cardiovascular Disease
DX: I25.10 Atherosclerotic heart disease of native coronary artery without angina pectoris (principal); R07.9 Chest pain, unspecified
CPT/HCPCS: 78452; 93017; J2785; A9500 ×2